=== PATIENT | male | born 1985 | race Caucasian/White ===

== ENCOUNTER 2021-09-14 09:06 | Emergency (ER) | payer BC, MEDICAID, OTHER ==
[~2021-09-14] VITALS: Ht 182.9 cm; Wt 117.5 kg
[~2021-09-14 09:06] MED LIST: EMTR1TAB6; RALT400T
[2021-09-14 09:37] VITALS: BP 129/72
--- NOTE | 2021-09-14 10:02 | NUR ---
PT LEFT ED. STATES WILL JUST BUY GASX. NOT SEEN BY ERMD.
== END 2021-09-14 10:04 | disposition left against medical advice (07) ==
LOC: ER 09:22
DX: Z53.21 Procedure and treatment not carried out due to patient leaving prior to being seen by health care provider (principal); R10.30 Lower abdominal pain, unspecified; G40.909 Epilepsy, unspecified, not intractable, without status epilepticus; Z90.89 Acquired absence of other organs

== ENCOUNTER 2021-09-29 21:37 | Emergency (ER) | payer BC ==
[~2021-09-29] VITALS: Ht 182.9 cm; Wt 98.0 kg
[2021-09-29 21:49] VITALS: BP 142/93
--- NOTE | 2021-09-29 21:50 | NUR ---
BIBS C/O LEFT INDEX FINGER LAC. TDAP NOT UTD. PLACED COMFORTABLY IN BED.
[2021-09-29] MEDS ORDERED: TDAP [DIPH/PERTUSSIS/TET] 0.5 ML VIAL IM ONE ×2 (22:00→22:20)
[2021-09-29] MEDS ORDERED: LIDOCAINE HCL/PF 1% 30 ML VIAL TP ONE (22:00)
[2021-09-29] MEDS ORDERED: LIDOCAINE HCL/PF 2 % 5ML SDV 5 ML VIAL ONE (22:03)
[2021-09-29] MEDS ORDERED: GELATIN SPONGE,ABSORBABLE 1 SPONGE SPONGE TP ONE ×2 (22:04→22:30)
--- NOTE | 2021-09-29 22:20 | NUR ---
NERVE BLOCK DONE BY SABINA ESCOBAR ON AVULSED WOUND
--- NOTE | 2021-09-29 22:31 | NUR ---
Patient discharged to home in stable condition. Written and verbal after care instructions given. Patient verbalizes understanding of instruction.
== END 2021-09-29 22:31 | disposition home or self-care (01) ==
LOC: ER 21:49
DX: S61.211A Laceration without foreign body of left index finger without damage to nail, initial encounter (principal); I34.1 Nonrheumatic mitral (valve) prolapse; Z86.69 Personal history of other diseases of the nervous system and sense organs; Z86.19 Personal history of other infectious and parasitic diseases; Z79.899 Other long term (current) drug therapy; W26.8XXA Contact with other sharp object(s), not elsewhere classified, initial encounter; Y93.89 Activity, other specified; Y92.89 Other specified places as the place of occurrence of the external cause; Y99.8 Other external cause status
CPT/HCPCS: 90471; 90715; 99283; J3490 ×2